=== PATIENT | female | born 1995 | race Caucasian/White ===

== ENCOUNTER 2017-04-28 21:34 | Emergency (ER) | payer OTHER ==
--- NOTE | 2017-04-28 21:40 | UC ---
Respiratory Complaint HPI - HPI Summary HPI Summary: 21 year old female with flu like symptoms. Cough for 2 days, sore throat started 5 days ago; neg strep test at [facility] . Body aches for 2 days. Turns 22 tomorrow. [ End ] - History of Current Complaint Stated Complaint: FLU SYMP Time Seen by Provider: 04/28/17 21:36 Hx Obtained From: Patient Onset/Duration: Gradual Onset Timing: Constant Severity Initially: Mild Severity Currently: Moderate Character: Cough: Nonproductive Aggravating Factors: Nothing Alleviating Factors: Nothing Associated Signs And Symptoms: Positive: Nasal Congestion - Allergies/Home Medications Allergies/Adverse Reactions: Allergies Allergy/AdvReac Type Severity Reaction Status Date / Time No Known Allergies Allergy Verified 04/28/17 21:49 Home Medications: Home Medications O C 11 tab PO QPM 04/28/17 [History Confirmed 04/28/17] PMH/Surg Hx/FS Hx/Imm Hx Previously Healthy: Yes - Family History Known Family History: Positive: Respiratory Disease - mom asthma - Social History Occupation: Student - senior Lives: Dormitory/Roommates Review of Systems Constitutional: Fever, Chills, Fatigue ENT: Sore Throat, Nasal Discharge, Sinus Congestion Respiratory: Cough All Other Systems Reviewed And Are Negative: Yes Physical Exam Triage Information Reviewed: Yes Appearance: Well-Appearing, No Pain Distress, Well-Nourished Vital Signs Reviewed: Yes Eye Exam: Normal ENT Exam: Normal ENT: Positive: Pharynx normal, Nasal congestion, TMs normal, TM dull. Negative : Tonsillar swelling, Tonsillar exudate, Trismus Dental Exam: Normal Neck exam: Normal Neck: Positive: Supple, Nontender, Enlarged Nodes @ - Right anterior cervical lymph node small and mild tenderness Respiratory Exam: Normal Respiratory: Positive: Chest non-tender, Lungs clear, Normal breath sounds, No respiratory distress Cardiovascular Exam: Normal Cardiovascular: Positive: RRR, No Murmur, Pulses Normal Musculoskeletal Exam: Normal Neurological Exam: Normal Psychological Exam: Normal Skin Exam: Normal Respiratory Course/Dx - Course Course Of Treatment: Discussed her Sx are viral in nature. she is concerned as she states she gets bacterial bronchitis 3 times a year and worried about getting worsened. I advise claritin, flonase, tessalon for a few days and if Sx worsen then may start antibiotics in 3 days. She is aware of SE of meds and that amox has chances of SE and may not help. - Differential Dx/Diagnosis Differential Diagnosis/HQI/PQRI: Bronchitis, Influenza, Laryngitis, Lower Resp Infection, Sinusitis Provider Diagnoses: URI / Pharyngitis Discharge - Discharge Plan Condition: Good Disposition: HOME Prescriptions: Amoxicillin PO (*) [Amoxicillin 500 MG CAP*] 500 mg PO Q12H #20 cap Benzonatate [Benzonatate 200 MG] 200 mg PO TID #20 cap Patient Education Materials: Upper Respiratory Infection (ED) Forms: *School Release Additional Instructions: Please seek medical care if you are not improved or have any concerns. Good luck with the rest of the semester . As we discussed your symptoms are highly likely to be viral but if your symptoms worsen over the next 3 days then you may start the antibiotics. Happy Birthday
[2017-04-28 21:49] VITALS: BP 104/81
== END 2017-04-28 22:12 | disposition home or self-care (01) ==
LOC: UCCORT 21:34
DX: J06.9 Acute upper respiratory infection, unspecified (principal)
CPT/HCPCS: 87502; 99202; G0463